=== PATIENT | female | born 1960 | race Caucasian/White ===

== ENCOUNTER 2024-05-30 22:13 | Inpatient (IN) | payer MEDICARE, OTHER ==
[~2024-05-30] VITALS: Ht 157.5 cm; Wt 75.2 kg
[2024-05-30] MEDS: NS 1,000 ML IV ONE (23:05)
[2024-05-30 23:10] LABS: BASO # 0.1 10^3/uL (0.0-0.2); BASO % 0.4 % (0.0-1.0); EOS # 0.1 10^3/uL (0.0-0.5); EOS % 0.6 % (0.0-3.0); HEMATOCRIT 55.5 % (36.0-47.0); HEMOGLOBIN 17.5 g/dl (12.0-15.5); LYMPH # 2.4 10^3/uL (1.5-5.0); LYMPH % 17.1 % (24.0-44.0); MEAN CORPUSCULAR HEMOGLOBIN 29.9 pg (27.0-33.0); MEAN CORPUSCULAR HGB CONC 31.5 g/dl (32.0-36.5); MEAN CORPUSCULAR VOLUME 94.9 fl (80.0-96.0); MONO % 6.9 % (2.0-8.0); NEUTROPHILS # 10.3 10^3/uL (1.5-8.5); NEUTROPHILS % 74.4 % (36.0-66.0); PLATELET COUNT, AUTOMATED 198 10^3/uL (150-450); RED BLOOD COUNT 5.85 10^6/uL (4.00-5.40); WHITE BLOOD COUNT 13.9 10^3/uL (4.0-10.0)
[2024-05-30] MEDS: ONDANSETRON 4MG 2ML VIAL IV ONE (23:11)
[2024-05-30] MEDS: METOPROLOL 5 MG/5 ML VIAL IV SCH (23:13)
[2024-05-30] MEDS: MORPHINE 2 MG/ML 1ML VIAL IV ONE (23:33)
[2024-05-30 23:35] LABS: CPK CREATINE PHOSPHOKINASE 98 U/L (34-145)
[2024-05-30 23:36] LABS: BLOOD UREA NITROGEN 43 MG/DL (9-23); CALCIUM LEVEL 10.2 MG/DL (8.3-10.6); CARBON DIOXIDE LEVEL 24 MMOL/L (20-31); CHLORIDE LEVEL 100 MMOL/L (98-107); CK-MB VALUE MASS < 1.0 NG/ML (<3.6); CREATININE FOR GFR 1.34 MG/DL (0.55-1.30); GLOMERULAR FILTRATION RATE 42.3 (>45); GLUCOSE, FASTING 104 MG/DL (74-106); MAGNESIUM LEVEL 2.2 MG/DL (1.8-2.4); MB/CK RELATIVE INDEX 1.02 (< OR =4); POTASSIUM SERUM 4.1 MMOL/L (3.5-5.1); SODIUM LEVEL 140 MMOL/L (136-145)
[2024-05-31] MEDS: NITROGLYCERIN 2% OINT 1 GM *U/D* PKT TOP ONE
[2024-05-31] MEDS: DIGOXIN INJ 0.5 MG/2 ML AMP IV ONE (00:33)
[2024-05-31 00:40] LABS: CK-MB VALUE MASS < 1.0 NG/ML (<3.6)
[2024-05-31 00:42] LABS: CPK CREATINE PHOSPHOKINASE 95 U/L (34-145); MB/CK RELATIVE INDEX 1.05 (< OR =4)
[2024-05-31] MEDS: atenoloL 25 MG TAB PO ONE (01:20)
[2024-05-31] MEDS: FUROSEMIDE 40MG/4ML VIAL IV ONE (02:08)
[2024-05-31] MEDS: DIGOXIN INJ 0.5 MG/2 ML AMP IV SCH (05:00)
[2024-05-31] MEDS ORDERED: hydrALAZINE 20MG/ML 1ML VIAL IV PRN (05:00)
[2024-05-31] MEDS ORDERED: IBUP-1730 PO (05:17)
[2024-05-31] MEDS ORDERED: ASPI81TA26 PO (05:17)
[2024-05-31] MEDS ORDERED: NEXI20CA PO (05:17)
[2024-05-31] MEDS ORDERED: DEXT1TAB15 PO (05:17)
[2024-05-31] MEDS ORDERED: HOME MED LIST COMPLETE! XX SCH (05:20)
[2024-05-31 06:24] LABS: HEMATOCRIT 54.8 % (36.0-47.0); HEMOGLOBIN 16.2 g/dl (12.0-15.5); MEAN CORPUSCULAR HEMOGLOBIN 29.9 pg (27.0-33.0); MEAN CORPUSCULAR HGB CONC 29.6 g/dl (32.0-36.5); MEAN CORPUSCULAR VOLUME 101.3 fl (80.0-96.0); PLATELET COUNT, AUTOMATED 139 10^3/uL (150-450); RED BLOOD COUNT 5.41 10^6/uL (4.00-5.40); WHITE BLOOD COUNT 10.1 10^3/uL (4.0-10.0)
[2024-05-31] MEDS: APIXABAN 5 MG TAB (ELIQUIS) PO SCH (06:24)
[2024-05-31 06:45] LABS: HEMOGLOBIN A1c 5.6 % (4.0-6.0)
[2024-05-31 06:46] LABS: CALCIUM LEVEL 9.2 MG/DL (8.3-10.6); CHOLESTEROL RISK RATIO 5.26 (<5); CREATININE FOR GFR 1.26 MG/DL (0.55-1.30); GLOMERULAR FILTRATION RATE 45.4 (>45); HDL CHOLESTEROL 22.6 MG/DL (>40); LDL CHOLESTEROL 64.2 MG/DL (<100); NON-HDL-C 96.4 MG/DL; POTASSIUM SERUM 4.5 MMOL/L (3.5-5.1)
[2024-05-31] MEDS: PANTOPRAZOLE 40MG TAB (PROTONIX) PO SCH (09:49)
[2024-05-31 11:12] LABS: RSV AMPLIFICATION NEGATIVE (NEGATIVE)
[2024-05-31 12:11] LABS: APPEARANCE, URINE CLEAR (CLEAR); BACTERIA, URINE AUTO 1+ (NEGATIVE); BILIRUBIN, URINE AUTO NEGATIVE (NEGATIVE); BLOOD, URINE BLOOD 2+ (NEGATIVE); COLOR, URINE YELLOW (YELLOW); GLUCOSE, URINE (UA) AUTO NEGATIVE (NEGATIVE); KETONE, URINE AUTO NEGATIVE (NEGATIVE); LEUKOCYTE ESTERASE, URINE AUTO NEGATIVE (NEGATIVE); MUCUS, URINE SMALL (NEGATIVE); NITRITE, URINE AUTO NEGATIVE (NEGATIVE); PROTEIN, URINE AUTO NEGATIVE (NEGATIVE); RBC, URINE AUTO 12 /HPF (0-3); SQUAMOUS EPITHELIAL CELL UR AU 3 /HPF (0-6); UROBILINOGEN, URINE AUTO 0.2 mg/dL (0.0-2.0); WBC, URINE AUTO 3 /HPF (0-3)
[2024-05-31 12:16] LABS: INR 1.47; PROTHROMBIN TIME 17.4 SECONDS (12.5-14.5)
[2024-05-31 12:30] LABS: SODIUM,RANDOM URINE 76 MMOL/L
[2024-05-31 15:13] VITALS: BP 90/72; TEMP 98.1; O2SAT 96
[2024-05-31 16:42] VITALS: BP 134/82
[2024-05-31 20:41] VITALS: BP 141/85; TEMP 97.7; O2SAT 94
[2024-05-31] MEDS: E-Z-PAQUE 96% w/w SUSP 176GM BTL XX ONE (21:49)
[2024-05-31] MEDS: ACETAMINOPHEN 325 MG TAB PO PRN (22:01)
[2024-05-31 23:34] VITALS: BP 144/87; TEMP 97.9; O2SAT 93
[2024-06-01] MEDS: HYDROMORPHONE HCL 0.5 MG/ 0.5 ML SYRINGE IV ONE (02:37)
[2024-06-01 04:37] VITALS: BP 121/73; TEMP 97.3; O2SAT 91
[2024-06-01 05:28] LABS: HEMATOCRIT 48.8 % (36.0-47.0); HEMOGLOBIN 14.9 g/dl (12.0-15.5); MEAN CORPUSCULAR HGB CONC 30.5 g/dl (32.0-36.5); MEAN CORPUSCULAR VOLUME 95.1 fl (80.0-96.0); PLATELET COUNT, AUTOMATED 146 10^3/uL (150-450); RED BLOOD COUNT 5.13 10^6/uL (4.00-5.40); WHITE BLOOD COUNT 10.4 10^3/uL (4.0-10.0)
[2024-06-01 05:55] LABS: CALCIUM LEVEL 9.5 MG/DL (8.3-10.6); CREATININE FOR GFR 1.53 MG/DL (0.55-1.30); GLOMERULAR FILTRATION RATE 36.3 (>45); POTASSIUM SERUM 4.5 MMOL/L (3.5-5.1)
[2024-06-01 08:00] VITALS: BP 117/73; TEMP 97.9; O2SAT 93
[2024-06-01] MEDS: LR 1,000 ML IV SCH (08:26)
[2024-06-01] MEDS: atenoloL 25 MG TAB PO SCH (08:26)
[2024-06-01 08:30] VITALS: O2SAT 91
[2024-06-01] MEDS ORDERED: ISOVUE-370 76% 100ML VIAL As Ordered ONE (10:40)
[2024-06-01] MEDS: NS 500 ML IV ONE (10:43)
[2024-06-01] MEDS: NS 1,000 ML IV SCH ×2 (10:44→11:35)
[2024-06-01] MEDS ORDERED: ISOVUE-300 61% 100ML VIAL As Ordered ONE (11:03)
[2024-06-01] MEDS ORDERED: LIDOCAINE 2% JELLY 6ML SYRINGE As Ordered ONE (11:03)
[2024-06-01] MEDS ORDERED: LIDOCAINE 1% MDV 20ML VIAL As Ordered ONE (11:03)
[2024-06-01] MEDS ORDERED: GLUCAGON INJ 1MG VIAL As Ordered ONE (11:04)
[2024-06-01] MEDS ORDERED: MIDAZOLAM INJ 2MG/2ML VIAL As Ordered ONE (11:05)
[2024-06-01] MEDS ORDERED: fentaNYL 100 MCG/2 ML INJECTION As Ordered ONE (11:05)
[2024-06-01] MEDS ORDERED: ceFAZolin 2 GM/D5W 50 ML IV BAG As Ordered ONE (11:33)
[2024-06-01] MEDS: ceFAZolin SOD 2 GM in IV 1 EA IV ONE (11:44)
[2024-06-01] MEDS ORDERED: ONDANSETRON 4MG 2ML VIAL As Ordered ONE (12:15)
[2024-06-01 13:56] VITALS: O2SAT 93
[2024-06-01 16:02] VITALS: BP 123/88; TEMP 97.7; O2SAT 92
[2024-06-01] MEDS: ONDANSETRON 4MG 2ML VIAL IV PRN (18:47)
[2024-06-01 19:47] VITALS: BP 111/67; TEMP 98; O2SAT 92
[2024-06-01] MEDS ORDERED: MORPHINE 4 MG/ML 1ML VIAL IV PRN (21:35)
[2024-06-02] MEDS: MORPHINE 2 MG/ML 1ML VIAL IV PRN (02:36)
[2024-06-02 03:01] VITALS: BP 119/66; TEMP 98.1; O2SAT 94
[2024-06-02 05:15] LABS: HEMATOCRIT 45.7 % (36.0-47.0); HEMOGLOBIN 13.7 g/dl (12.0-15.5); MEAN CORPUSCULAR HEMOGLOBIN 29.1 pg (27.0-33.0); MEAN CORPUSCULAR VOLUME 97.2 fl (80.0-96.0); PLATELET COUNT, AUTOMATED 132 10^3/uL (150-450); WHITE BLOOD COUNT 9.2 10^3/uL (4.0-10.0)
[2024-06-02 05:41] LABS: CALCIUM LEVEL 9.1 MG/DL (8.3-10.6); CREATININE FOR GFR 1.16 MG/DL (0.55-1.30); GLOMERULAR FILTRATION RATE 49.9 (>45); MAGNESIUM LEVEL 1.9 MG/DL (1.8-2.4)
[2024-06-02 08:00] VITALS: BP 121/66; TEMP 97.7; O2SAT 95
[2024-06-02 12:00] VITALS: BP 132/67; TEMP 97.5; O2SAT 94
[2024-06-02] MEDS: APIXABAN 5 MG TAB (ELIQUIS) PO SCH (12:36)
[2024-06-02 16:00] VITALS: BP 132/86; TEMP 97.5; O2SAT 94
[2024-06-02 20:40] VITALS: BP 128/69; TEMP 97.5; O2SAT 94
[2024-06-02 23:30] VITALS: BP 151/77; TEMP 97.5; O2SAT 97
[2024-06-03] VITALS (9 sets, daily range): BP systolic 140–148; BP diastolic 72–81; TEMP 97–97.9; O2SAT 72–97
[2024-06-03 06:39] LABS: HEMATOCRIT 48.4 % (36.0-47.0); HEMOGLOBIN 14.5 g/dl (12.0-15.5); MEAN CORPUSCULAR HEMOGLOBIN 28.8 pg (27.0-33.0); PLATELET COUNT, AUTOMATED 133 10^3/uL (150-450); RED BLOOD COUNT 5.04 10^6/uL (4.00-5.40); WHITE BLOOD COUNT 9.3 10^3/uL (4.0-10.0)
[2024-06-03 06:59] LABS: BLOOD UREA NITROGEN 33 MG/DL (9-23); CALCIUM LEVEL 9.3 MG/DL (8.3-10.6); CARBON DIOXIDE LEVEL 29 MMOL/L (20-31); CHLORIDE LEVEL 106 MMOL/L (98-107); CREATININE FOR GFR 0.98 MG/DL (0.55-1.30); GLOMERULAR FILTRATION RATE > 60.0 (>45); GLUCOSE, FASTING 120 MG/DL (74-106); MAGNESIUM LEVEL 1.9 MG/DL (1.8-2.4); POTASSIUM SERUM 3.8 MMOL/L (3.5-5.1); SODIUM LEVEL 141 MMOL/L (136-145)
[2024-06-03] MEDS: MAGNESIUM OXIDE 400MG TAB (MAG-OX) PO SCH (07:59)
[2024-06-03] MEDS ORDERED: MORPHINE 4 MG/ML 1ML VIAL IV PRN (08:05)
[2024-06-03] MEDS ORDERED: KETOROLAC 30 MG/ML 1ML VIAL IV PRN (08:05)
[2024-06-03 08:29] LABS: ALBUMIN 2.6 G/DL (3.2-5.2); ALKALINE PHOSPHATASE 101 U/L (46-116); ALT/SGPT 33 U/L (7.0-40); AST/SGOT 45 U/L (<34); BILIRUBIN,DIRECT 0.4 MG/DL (<0.4); BILIRUBIN,TOTAL 0.8 MG/DL (0.3-1.2); TOTAL PROTEIN 5.8 G/DL (5.7-8.2)
[2024-06-03] MEDS ORDERED: LIDOCAINE 5% (LIDODERM) PATCH TD SCH (09:00)
[2024-06-03] MEDS: GABAPENTIN 100 MG CAP PO SCH (09:39)
[2024-06-03] MEDS: ACETAMINOPHEN 325 MG TAB PO SCH (09:40)
[2024-06-03] MEDS: KETOROLAC 30 MG/ML 1ML VIAL IV SCH (09:41)
[2024-06-03] MEDS: DICLOFENAC EPOLAMINE 1.3% PATCH TOP SCH (09:41)
[2024-06-03] MEDS: ACETAMINOPHEN 500 MG TAB PO SCH (14:00)
[2024-06-04] VITALS (13 sets, daily range): BP systolic 111–143; BP diastolic 77–110; TEMP 97.2–98.1; O2SAT 88–95
[2024-06-04] MEDS: MIRALAX *UNIT DOSE* 17GM PACKET GT SCH (09:15)
[2024-06-04] MEDS: GABAPENTIN 100 MG CAP PEG SCH (09:16)
[2024-06-04] MEDS: ANALGESIC BALM CRM 3OZ TOP SCH (10:23)
[2024-06-04] MEDS: atenoloL 50 MG TAB PO ONE (16:26)
[2024-06-04] MEDS: oxyCODONE 5MG TAB PO PRN (17:56)
[2024-06-05] VITALS (19 sets, daily range): BP systolic 110–141; BP diastolic 56–84; TEMP 97–98.1; O2SAT 88–98
[2024-06-05] MEDS: FUROSEMIDE 40MG/4ML VIAL IV ONE ×2 (04:27→07:58)
[2024-06-05 04:42] LABS: VENOUS BASE EXCESS 5.3 (-2.0-2.0); VENOUS O2 SATURATION 99.5 % (60.0-80.0); VENOUS PARTIAL PRESSURE CO2 43.9 mmHg (38.0-50.0); VENOUS PARTIAL PRESSURE O2 172.8 mmHg (30.0-50.0); VENOUS PH 7.453 UNITS (7.330-7.430); VENOUS STANDARD HCO3 29.3 MMOL/L; VENOUS TOTAL CO2 31.4 MMOL/L (24.0-28.0)
[2024-06-05 07:50] LABS: ABG BASE EXCESS 4.9 (-2.0-2.0); ABG HCO3 29.2 MMOL/L (22.0-26.0); ABG O2 SATURATION 95.5 % (95.0-99.0); ABG PARTIAL PRESSURE CO2 41.5 mmHg (35.0-45.0); ABG PARTIAL PRESSURE O2 73.5 mmHg (75.0-100.0); ABG STANDARD HCO3 28.8 MMOL/L. (22.0-26.0); ABG TOTAL CO2 30.5 MMOL/L (23.0-31.0); ABG pH (ARTERIAL) 7.465 UNITS (7.350-7.450)
[2024-06-05 08:11] LABS: BASO # 0.1 10^3/uL (0.0-0.2); BASO % 0.4 % (0.0-1.0); EOS # 0.1 10^3/uL (0.0-0.5); EOS % 0.4 % (0.0-3.0); HEMATOCRIT 50.7 % (36.0-47.0); HEMOGLOBIN 15.6 g/dl (12.0-15.5); LYMPH # 1.1 10^3/uL (1.5-5.0); LYMPH % 8.5 % (24.0-44.0); MEAN CORPUSCULAR HEMOGLOBIN 29.3 pg (27.0-33.0); MEAN CORPUSCULAR HGB CONC 30.8 g/dl (32.0-36.5); MEAN CORPUSCULAR VOLUME 95.1 fl (80.0-96.0); MONO % 7.3 % (2.0-8.0); NEUTROPHILS % 82.6 % (36.0-66.0); PLATELET COUNT, AUTOMATED 130 10^3/uL (150-450); RED BLOOD COUNT 5.33 10^6/uL (4.00-5.40); WHITE BLOOD COUNT 13.3 10^3/uL (4.0-10.0)
[2024-06-05 08:53] LABS: ALBUMIN 2.9 G/DL (3.2-5.2); ALKALINE PHOSPHATASE 105 U/L (46-116); ALT/SGPT 36 U/L (7.0-40); AST/SGOT 67 U/L (<34); BILIRUBIN,TOTAL 1.3 MG/DL (0.3-1.2); BLOOD UREA NITROGEN 33 MG/DL (9-23); CALCIUM LEVEL 9.8 MG/DL (8.3-10.6); CARBON DIOXIDE LEVEL 32 MMOL/L (20-31); CHLORIDE LEVEL 101 MMOL/L (98-107); CREATININE FOR GFR 0.88 MG/DL (0.55-1.30); GLOMERULAR FILTRATION RATE > 60.0 (>45); GLUCOSE, FASTING 123 MG/DL (74-106); POTASSIUM SERUM 4.3 MMOL/L (3.5-5.1); SODIUM LEVEL 138 MMOL/L (136-145); TOTAL PROTEIN 6.5 G/DL (5.7-8.2)
[2024-06-05] MEDS: PANTOPRAZOLE 40MG VIAL IV SCH (10:46)
[2024-06-05] MEDS: methylPREDNISolone 125MG 2ML VIAL IV SCH (10:46)
[2024-06-05] MEDS: oxyCODONE 5MG TAB PO PRN (13:36)
[2024-06-05] MEDS: LEVALBUTEROL 1.25MG 0.5ML CONCENTRATE NEB INH SCH (14:00)
[2024-06-05] MEDS ORDERED: atenoloL 50 MG TAB PO ONE (14:00)
[2024-06-05] MEDS ORDERED: IPRATROPIUM 0.5MG/ALBUTEROL 2.5MG INH SOL UD 3ML (DUONEB) NEB SCH (14:00)
[2024-06-06] VITALS (13 sets, daily range): BP systolic 112–148; BP diastolic 53–72; TEMP 96.8–97.8; O2SAT 79–94
[2024-06-06 08:06] LABS: BASO % 0.3 % (0.0-1.0); HEMATOCRIT 49.6 % (36.0-47.0); HEMOGLOBIN 15.7 g/dl (12.0-15.5); LYMPH # 1.1 10^3/uL (1.5-5.0); LYMPH % 7.3 % (24.0-44.0); MEAN CORPUSCULAR HEMOGLOBIN 29.8 pg (27.0-33.0); MEAN CORPUSCULAR HGB CONC 31.7 g/dl (32.0-36.5); MEAN CORPUSCULAR VOLUME 94.3 fl (80.0-96.0); MONO % 7.1 % (2.0-8.0); NEUTROPHILS # 12.1 10^3/uL (1.5-8.5); NEUTROPHILS % 84.6 % (36.0-66.0); PLATELET COUNT, AUTOMATED 159 10^3/uL (150-450); RED BLOOD COUNT 5.26 10^6/uL (4.00-5.40); WHITE BLOOD COUNT 14.3 10^3/uL (4.0-10.0)
[2024-06-06 08:18] LABS: BILIRUBIN,TOTAL 1.9 MG/DL (0.3-1.2); CALCIUM LEVEL 9.9 MG/DL (8.3-10.6); CREATININE FOR GFR 1.65 MG/DL (0.55-1.30); GLOMERULAR FILTRATION RATE 33.2 (>45); POTASSIUM SERUM 5.6 MMOL/L (3.5-5.1); TOTAL PROTEIN 6.7 G/DL (5.7-8.2)
[2024-06-06] MEDS: NS 500 ML IV ONE (09:02)
[2024-06-06 12:01] LABS: ABG BASE EXCESS 1.5 (-2.0-2.0); ABG HCO3 25.2 MMOL/L (22.0-26.0); ABG O2 SATURATION 91.1 % (95.0-99.0); ABG PARTIAL PRESSURE CO2 37.4 mmHg (35.0-45.0); ABG PARTIAL PRESSURE O2 60.1 mmHg (75.0-100.0); ABG STANDARD HCO3 25.6 MMOL/L. (22.0-26.0); ABG TOTAL CO2 26.4 MMOL/L (23.0-31.0); ABG pH (ARTERIAL) 7.447 UNITS (7.350-7.450)
[2024-06-06] MEDS: atenoloL 25 MG TAB PO SCH (12:03)
[2024-06-06] MEDS: PATIROMER SORBITEX CALCIUM 8.4 GM POWDER PACKET (VELTASSA) PO ONE ×2 (12:03→21:03)
[2024-06-06] MEDS: CALCIUM GLUCONATE 1,000 MG in DEXTROSE 5% (D5W) MINI-BAG PLU 100 ML IV ONE ×2 (12:04→18:54)
[2024-06-06] MEDS: SODIUM CHLORIDE 0.9% INJ 10 ML SYR IV SCH (17:13)
[2024-06-06 18:02] LABS: CK-MB VALUE MASS 1.4 NG/ML (<3.6)
[2024-06-06 18:03] LABS: CALCIUM LEVEL 9.7 MG/DL (8.3-10.6); CREATININE FOR GFR 2.3 MG/DL (0.55-1.30); GLOMERULAR FILTRATION RATE 22.7 (>45); POTASSIUM SERUM 5.5 MMOL/L (3.5-5.1)
[2024-06-06 18:13] LABS: MB/CK RELATIVE INDEX 0.62 (< OR =4)
[2024-06-06] MEDS ORDERED: HEPARIN 1000 UNIT/ML CRRT 20,000 UNITS in IV 1 EA CRRT SCH (18:15)
[2024-06-06] MEDS ORDERED: HEPARIN 1000 UNIT/ML *20ML* SYRINGE CRRT CRRT ONE (18:15)
[2024-06-06] MEDS ORDERED: HEPARIN 1000 UNIT/ML *20ML* SYRINGE CRRT CRRT SCH (18:15)
[2024-06-06 19:00] LABS: IONIZED CALCIUM 4.6 MG/DL (4.5-5.3)
[2024-06-06 19:03] LABS: HEMATOCRIT 45.6 % (36.0-47.0); HEMOGLOBIN 14.3 g/dl (12.0-15.5); MEAN CORPUSCULAR HEMOGLOBIN 29.7 pg (27.0-33.0); MEAN CORPUSCULAR HGB CONC 31.4 g/dl (32.0-36.5); MEAN CORPUSCULAR VOLUME 94.8 fl (80.0-96.0); PLATELET COUNT, AUTOMATED 122 10^3/uL (150-450); RED BLOOD COUNT 4.81 10^6/uL (4.00-5.40); WHITE BLOOD COUNT 21.6 10^3/uL (4.0-10.0)
[2024-06-06 19:18] LABS: INR 1.65; PARTIAL THROMBOPLASTIN TIME 29.4 SECONDS (24.8-34.2); PROTHROMBIN TIME 18.9 SECONDS (12.5-14.5)
[2024-06-06 19:29] LABS: CALCIUM LEVEL 9.5 MG/DL (8.3-10.6); CREATININE FOR GFR 2.35 MG/DL (0.55-1.30); GLOMERULAR FILTRATION RATE 22.1 (>45); MAGNESIUM LEVEL 2.6 MG/DL (1.8-2.4); POTASSIUM SERUM 5.3 MMOL/L (3.5-5.1)
[2024-06-06 20:29] LABS: ABG BASE EXCESS 3.2 (-2.0-2.0); ABG HCO3 29.6 MMOL/L (22.0-26.0); ABG O2 SATURATION 97.5 % (95.0-99.0); ABG PARTIAL PRESSURE CO2 52.1 mmHg (35.0-45.0); ABG PARTIAL PRESSURE O2 102.9 mmHg (75.0-100.0); ABG STANDARD HCO3 27.3 MMOL/L. (22.0-26.0); ABG TOTAL CO2 31.2 MMOL/L (23.0-31.0); ABG pH (ARTERIAL) 7.373 UNITS (7.350-7.450)
[2024-06-06] MEDS: SOD POLYSTYRENE SULFONATE SUSP 30GM 120ML ENEMA PR ONE (21:03)
[2024-06-06] MEDS: DEXTROSE 50% 50ML SYRINGE IV STA (21:15)
[2024-06-06] MEDS: HumuLIN R (REGULAR) INSULIN (NovoLIN R) **100U/ML** PER UNIT IV STA (21:15)
[2024-06-06 22:08] LABS: ABG BASE EXCESS 0.3 (-2.0-2.0); ABG HCO3 25.6 MMOL/L (22.0-26.0); ABG O2 SATURATION 96.2 % (95.0-99.0); ABG PARTIAL PRESSURE CO2 43.4 mmHg (35.0-45.0); ABG STANDARD HCO3 24.8 MMOL/L. (22.0-26.0); ABG TOTAL CO2 26.9 MMOL/L (23.0-31.0); ABG pH (ARTERIAL) 7.388 UNITS (7.350-7.450)
[2024-06-07] VITALS (27 sets, daily range): BP systolic 78–157; BP diastolic 33–89; TEMP 96.5–98.7; O2SAT 83–98
[2024-06-07 00:32] LABS: CALCIUM LEVEL 9.7 MG/DL (8.3-10.6); CK-MB VALUE MASS 1.4 NG/ML (<3.6); CREATININE FOR GFR 2.34 MG/DL (0.55-1.30); GLOMERULAR FILTRATION RATE 22.2 (>45); POTASSIUM SERUM 5.5 MMOL/L (3.5-5.1)
[2024-06-07 00:39] LABS: MB/CK RELATIVE INDEX 0.47 (< OR =4)
[2024-06-07] MEDS ORDERED: ALBUTEROL SULFATE 2.5MG/0.5ML INH NEB SOLN NEB STA (01:26)
[2024-06-07] MEDS ORDERED: LEVALBUTEROL 1.25MG 0.5ML CONCENTRATE NEB NEB PRN (01:45)
[2024-06-07] MEDS: HumuLIN R (REGULAR) INSULIN (NovoLIN R) **100U/ML** PER UNIT IV STA (01:48)
[2024-06-07] MEDS: CALCIUM GLUCONATE 1,000 MG in DEXTROSE 5% (D5W) MINI-BAG PLU 100 ML IV STA (01:48)
[2024-06-07] MEDS: DEXTROSE 50% 50ML SYRINGE IV STA (01:48)
[2024-06-07] MEDS: SODIUM CHLORIDE 0.9% INJ 10 ML SYR IV PRN (05:31)
[2024-06-07 06:52] LABS: HEMATOCRIT 48.1 % (36.0-47.0); HEMOGLOBIN 14.8 g/dl (12.0-15.5); MEAN CORPUSCULAR HEMOGLOBIN 29.5 pg (27.0-33.0); MEAN CORPUSCULAR HGB CONC 30.8 g/dl (32.0-36.5); MEAN CORPUSCULAR VOLUME 95.8 fl (80.0-96.0); PLATELET COUNT, AUTOMATED 148 10^3/uL (150-450); RED BLOOD COUNT 5.02 10^6/uL (4.00-5.40); WHITE BLOOD COUNT 19.9 10^3/uL (4.0-10.0)
[2024-06-07 07:07] LABS: INR 1.58; PROTHROMBIN TIME 18.3 SECONDS (12.5-14.5)
[2024-06-07 07:11] LABS: CK-MB VALUE MASS 2.1 NG/ML (<3.6)
[2024-06-07 07:13] LABS: CALCIUM LEVEL 10.3 MG/DL (8.3-10.6); CREATININE FOR GFR 2.19 MG/DL (0.55-1.30); POTASSIUM SERUM 5.4 MMOL/L (3.5-5.1)
[2024-06-07 07:18] LABS: MB/CK RELATIVE INDEX 0.57 (< OR =4)
[2024-06-07 07:59] LABS: LYMPHOCYTES 6 % (16-44); MONOCYTES 2 % (0-5); NEUTROPHILS 87 % (28-66); PLATELET ESTIMATE NORMAL (NORMAL)
[2024-06-07] MEDS ORDERED: dexmedeTOMIDine (4MCG/ML)200MCG/50ML BTL (PRECEDEX) As Ordered ONE (09:07)
[2024-06-07] MEDS ORDERED: AMIODARONE 150MG/3ML VIAL IVP STA (09:28)
[2024-06-07] MEDS ORDERED: AMIODARONE HCL 150 MG/100 ML PREMIXED BAG (NEXTERONE) As Ordered ONE (09:31)
[2024-06-07] MEDS ORDERED: MAGNESIUM SULFATE 1GM/100ML D5W BAG (10MG/ML) As Ordered ONE (09:32)
[2024-06-07] MEDS: HEPARIN 1,000UNITS/ML 10ML VIAL (FOR RADIOLOGY & DIALYSIS ONLY) IV STA (09:56)
[2024-06-07] MEDS: AMIODARONE HCL 150 MG in IV 1 EA IV SCH (09:56)
[2024-06-07] MEDS: MAG SULF 1GM/100ML (MAG RUN) 1 GM in IV 1 EA IV STA (09:57)
[2024-06-07] MEDS: dexmedeTOMidine 200 MCG in IV 1 EA IV SCH (09:58)
[2024-06-07] MEDS: AMIODARONE HCL 360 MG in IV 1 EA IV SCH (10:19)
[2024-06-07] MEDS ORDERED: HEPARIN 1,000UNITS/ML 10ML VIAL (FOR RADIOLOGY & DIALYSIS ONLY) IV PRN (10:30)
[2024-06-07] MEDS ORDERED: SODIUM CHLORIDE 0.9% 1000 ML IV PRN (10:30)
[2024-06-07] MEDS ORDERED: FUROSEMIDE 100MG/10ML VIAL As Ordered ONE (10:47)
[2024-06-07] MEDS: FUROSEMIDE 100MG/10ML VIAL IV ONE (11:51)
[2024-06-07 12:55] LABS: CK-MB VALUE MASS 2.8 NG/ML (<3.6)
[2024-06-07 12:56] LABS: MB/CK RELATIVE INDEX 0.75 (< OR =4)
[2024-06-07 13:05] LABS: HEPATITIS B SURFACE ANTIBODY POSITIVE (POSITIVE)
[2024-06-07 13:16] LABS: HEPATITIS B SURFACE ANTIGEN NEGATIVE (NEGATIVE)
[2024-06-07] MEDS: NOREPINEPHRINE 4MG IN D5 250ML 4 MG in IV 1 EA IV STA (13:23)
[2024-06-07 13:25] LABS: VENOUS BASE EXCESS -2.2 (-2.0-2.0); VENOUS HCO3 27.6 MMOL/L (23.0-27.0); VENOUS O2 SATURATION 81.8 % (60.0-80.0); VENOUS PARTIAL PRESSURE O2 54.2 mmHg (30.0-50.0); VENOUS PH 7.213 UNITS (7.330-7.430); VENOUS STANDARD HCO3 22.2 MMOL/L; VENOUS TOTAL CO2 29.7 MMOL/L (24.0-28.0)
[2024-06-07 13:37] LABS: HEPATITIS B CORE ANTIBODY IGM NEGATIVE (NEGATIVE); HEPATITIS C VIRUS ABY INDEX 0.05 INDEX (<0.8)
[2024-06-07] MEDS: HEPARIN 1,000UNITS/ML 10ML VIAL (FOR RADIOLOGY & DIALYSIS ONLY) XX SCH (13:44)
[2024-06-07] MEDS ORDERED: SODIUM BICARBONATE 8.4% INJ 50ML SYRINGE As Ordered ONE (15:34)
== END 2024-06-07 15:33 | disposition expired | DRG 987 ==
LOC: M ED 22:13 → M ED INP 05-31 03:43 → M MSPAV 05-31 14:47 → M ICU 06-05 10:54
PROVIDERS: ADMIT Student in an Organized Health Care Education/Training Program; ATTEND Internal Medicine Pulmonary Disease
PROC: 07B13ZX Excision of Right Neck Lymphatic, Percutaneous Approach, Diagnostic (ICD-10-PCS; principal; 2024-06-01 11:00)
PROC: 0DH63UZ Insertion of Feeding Device into Stomach, Percutaneous Approach (ICD-10-PCS; 2024-06-01 11:00)
PROC: 02HV33Z Insertion of Infusion Device into Superior Vena Cava, Percutaneous Approach (ICD-10-PCS; 2024-06-07)
PROC: 0JH63XZ Insertion of Tunneled Vascular Access Device into Chest Subcutaneous Tissue and Fascia, Percutaneous Approach (ICD-10-PCS; 2024-06-07)
DX: C76.1 Malignant neoplasm of thorax (principal); J96.01 Acute respiratory failure with hypoxia; I50.33 Acute on chronic diastolic (congestive) heart failure; G93.41 Metabolic encephalopathy; I24.89 Other forms of acute ischemic heart disease; C34.31 Malignant neoplasm of lower lobe, right bronchus or lung; I13.0 Hypertensive heart and chronic kidney disease with heart failure and stage 1 through stage 4 chronic kidney disease, or unspecified chronic kidney disease; C78.1 Secondary malignant neoplasm of mediastinum; E87.29 Other acidosis; N17.9 Acute kidney failure, unspecified; I48.91 Unspecified atrial fibrillation; K21.9 Gastro-esophageal reflux disease without esophagitis; I11.0 Hypertensive heart disease with heart failure; R13.10 Dysphagia, unspecified; I46.9 Cardiac arrest, cause unspecified; I16.0 Hypertensive urgency; E87.5 Hyperkalemia; D69.6 Thrombocytopenia, unspecified; Z91.030 Bee allergy status; Z66 Do not resuscitate; R00.0 Tachycardia, unspecified; F17.200 Nicotine dependence, unspecified, uncomplicated

== ENCOUNTER 2024-06-05 14:20 | Outpatient (RCR) | payer MEDICARE, OTHER ==
[~2024-06-05 14:20] MED LIST: ASPI81TA26 PO; DEXT1TAB15 PO; IBUP-1730 PO; NEXI20CA PO
[2024-06-06] MEDS ORDERED: SODIUM CHLORIDE 0.9% INJ 10 ML SYR IV PRN (11:30)
[2024-06-06] MEDS ORDERED: SODIUM CHLORIDE 0.9% INJ 10 ML SYR IV SCH (18:00)
== END 2024-06-07 ==
LOC: M ONCR 14:20
PROVIDERS: ATTEND General Practice
DX: Z51.0 Encounter for antineoplastic radiation therapy (principal); C34.31 Malignant neoplasm of lower lobe, right bronchus or lung